=== PATIENT | female | born 1965 | race Caucasian/White ===

== ENCOUNTER 2023-11-05 09:40 | Outpatient (CLI) | payer MEDICAID, SELFPAY ==
--- NOTE | 2023-11-05 09:49 | DI.RAD_ITS ---
Exam(s) XR WRIST LT COMPLETE EXAM: XR WRIST LT COMPLETE CLINICAL HISTORY: LEFT WRIST FRACTURE. TECHNIQUE: 2D digital imaging was performed of the left wrist. Three images were obtained. PA, obl ique and lateral views were obtained. COMPARISON: DX Wrist LT from 10/06/2023 FINDINGS: BONES: There has been no change in alignment of the distal left radial fracture. The fracture is imp acted with mild dorsal angulation. There is 5 mm dorsal displacement of the distal fracture. There has been no change in alignment of the mildly impacted distal ulnar fracture. There is callus format ion which has increased when compared to the prior examinations consistent with some interval healing . No new fracture is seen. No bony destructive lesion is seen. JOINTS: The carpal bones are normally aligned. SOFT TISSUE: Normal. IMPRESSION: Stable alignment of the healing distal left radial and ulnar fractures. DATA REPOSITORY: RADIATION DOSE DELIVERED:
== END 2023-11-05 09:41 | disposition home or self-care (01) ==
LOC: DIORS 09:40
PROVIDERS: Visit Provider Physician Assistant
DX: S62.102D Fracture of unspecified carpal bone, left wrist, subsequent encounter for fracture with routine healing (principal); X58.XXXD Exposure to other specified factors, subsequent encounter
CPT/HCPCS: 73110

== ENCOUNTER → 2023-11-05 10:31 | Outpatient (CLI) | payer MEDICAID, SELFPAY ==
--- NOTE | 2023-11-05 10:30 | DI.CT_ITS ---
Exam(s) CT UPPER EXTREMITY LT WO EXAM: CT UPPER EXTREMITY LT WO CLINICAL HISTORY: PAIN, SURGICAL PLANNING S52.502A FX LEFT DISTAL RADIUS TECHNIQUE: Imaging Protocol: Axial computed tomography images with coronal and sagittal reformatted images were created and reviewed. CONTRAST MATERIAL: None COMPARISON: DX Wrist LT from 10/06/2023 CR XR WRIST LT COMPLETE from 11/05/2023 FINDINGS: Bones: There is a comminuted fracture of the distal radius with posterior angulation and displacement . Only a small portion of the articular surface is involved, at the dorsal aspect. Comminuted fract ure of the distal ulna is also present. There is callus formation around both fracture sites. The c arpal alignment appears normal. Soft Tissues: Mild soft tissue swelling. IMPRESSION: Comminuted fractures of the distal radius and ulna.. RADIATION DOSE DELIVERED: 150.83mGy.cm Total DLP DATA REPOSITORY: All CT scans at this facility are submitted to the National Radiology Data Registry (NRDR) Dose Index Registry (DIR) with the [employer] ([employer]). RADIATION OPTIMIZATION: All CT scans at this facility use at least one of these dose optimization te chniques: automated exposure control; mA and/or kV adjustment per patient size (includes targeted exa ms where dose is matched to clinical indication); or iterative reconstruction.
== END ==
PROVIDERS: Visit Provider Student in an Organized Health Care Education/Training Program
DX: S52.135D Nondisplaced fracture of neck of left radius, subsequent encounter for closed fracture with routine healing (principal); X58.XXXD Exposure to other specified factors, subsequent encounter
CPT/HCPCS: 73200